=== PATIENT | male | born 1985 | race Caucasian/White ===

== ENCOUNTER 2022-12-17 09:39 | Emergency (ER) | payer BC ==
[2022-12-17 10:06] VITALS: TEMP 98.2
--- NOTE | 2022-12-17 11:33 | ED ---
General Adult HPI - General Chief complaint: Abdominal Pain Stated complaint: ABD PAIN Time Seen by Provider: 12/17/22 11:12 Source: patient, RN notes reviewed Mode of arrival: ambulatory Limitations: no limitations - History of Present Illness Initial comments: 37 year old presents to the emergency department for chief complaint of abdominal pain x3 days. He reports this started in the lower abdomen and is now in his flanks. He states that he's been feeling like he needs to use the bathroom but only having minimal urination. he states that he was taking Azo but is no longer. No history of abdominal surgery. Denies fever, chills. Denies nausea, vomiting. Denies hematuria, dysuria. - Related Data Home Medications Medication Instructions Recorded Confirmed No Known Home Medications 09/02/14 09/02/14 Allergies Allergy/AdvReac Type Severity Reaction Status Date / Time prednisone Allergy Hallucinati Verified 12/17/22 10:06 ons Review of Systems ROS Statement: Those systems with pertinent positive or pertinent negative responses have been documented in the HPI. ROS Other: All systems not noted in ROS Statement are negative. Past Medical History Past Medical History: No Reported History History of Any Multi-Drug Resistant Organisms: None Reported Additional Past Surgical History / Comment(s): finger surgery Past Psychological History: No Psychological Hx Reported Smoking Status: Never smoker Past Alcohol Use History: None Reported Past Drug Use History: None Reported General Exam Limitations: no limitations General appearance: alert, in no apparent distress Head exam: Present: atraumatic, normocephalic, normal inspection Eye exam: Present: normal appearance, PERRL, EOMI. Absent: scleral icterus, conjunctival injection, periorbital swelling ENT exam: Present: normal exam, mucous membranes moist Neck exam: Present: normal inspection. Absent: tenderness, meningismus, lymphadenopathy Respiratory exam: Present: normal lung sounds bilaterally. Absent: respiratory distress, wheezes, rales, rhonchi, stridor Cardiovascular Exam: Present: regular rate, normal rhythm, normal heart sounds. Absent: systolic murmur, diastolic murmur, rubs, gallop, clicks GI/Abdominal exam: Present: soft, tenderness (Suprapubic), normal bowel sounds Extremities exam: Present: normal inspection, full ROM, normal capillary refill. Absent: tenderness, pedal edema, joint swelling, calf tenderness Back exam: Present: normal inspection Neurological exam: Present: alert, oriented X3 Psychiatric exam: Present: normal affect, normal mood Skin exam: Present: warm, dry, intact, normal color. Absent: rash Course Vital Signs 12/17/22 12/17/22 10:04 14:56 Temperature 98.2 F Pulse Rate 85 71 Respiratory 20 16 Rate Blood Pressure 133/82 124/82 O2 Sat by Pulse 99 98 Oximetry Medical Decision Making - Medical Decision Making Was pt. sent in by a medical professional or institution (, PA, CERTIFIED MARINE MECHANIC, urgent c are, hospital, or halfway...) When possible be specific @ -No Did you speak to anyone other than the patient for history (EMS, parent, family, police, friend...)? What history was obtained from this source @ -No Did you review nursing and triage notes (agree or disagree)? Why? @ -I reviewed and agree with nursing and triage notes Were old charts reviewed (outside hosp., previous admission, EMS record, old EKG, old radiological studies, urgent care reports/EKG's, halfway records)? Report findings @ -No old charts were reviewed Differential Diagnosis (chest pain, altered mental status, abdominal pain women, abdominal pain men, vaginal bleeding, weakness, fever, dyspnea, syncope, headache, dizziness, GI bleed, back pain, seizure, CVA, palpatations, mental health, musculoskeletal)? @ -Differential Abdominal Pain Men: Appendicitis, cholecystitis, diverticulosis, ischemic bowel, pancreatitis, hepatitis, UTI, gastroenteritis, AAA, incarcerated hernia, bowel obstruction, constipation, inflammatory bowel, hepatitis, peptic ulcer disease, splenic infarction, perforated viscus, testicular torsion, this is not meant to be an all-inclusive list EKG interpreted by me (3pts min.). @ -None X-rays interpreted by me (1pt min.). @ -None done CT interpreted by me (1pt min.). @ -CT abdomen and pelvis showed soft tissue fullness in the inferior cecum may be due to solid stool material, borderline and mildly enlarged mesenteric adenopathy, moderate hepatic steatosis, small hiatal hernia, mild circ umferential bladder wall thickening U/S interpreted by me (1pt. min.). @ -None done What testing was considered but not performed or refused? (CT, X-rays, U/S, labs)? Why? @ -None What meds were considered but not given or refused? Why? @ -None Did you discuss the management of the patient with other professionals (professionals i.e. DrSisi, PA, CERTIFIED MARINE MECHANIC, lab, RT, psych nurse, social and political studies professor, director public, teacher, chief accounting officer, bookstore manager)? Give summary @ -No Was smoking cessation discussed for >3mins.? @ -No Was critical care preformed (if so, how long)? @ -No Were there social determinants of health that impacted care today? How? (Homelessness, low income, unemployed, alcoholism, drug addiction, transportation, low edu. Level, literacy, decrease access to med. care, fci, rehab)? @ -No Was there de-escalation of care discussed even if they declined (Discuss DNR or withdrawal of care, Hospice)? DNR status @ -No What co-morbidities impacted this encounter? (DM, HTN, Smoking, COPD, CAD, Cancer, CVA, ARF, Chemo, Hep., AIDS, mental health diagnosis, sleep apnea, morbid obesity)? @ -None Was patient admitted / discharged? Hospital course, mention meds given and route, prescriptions, significant lab abnormalities, going to OR and other pertinent info. @ -Discharged. Patient presented to emergency department chief complaint abdominal pain 3 days. CBC, CMP, UA within normal limits. CT abdomen and pelvis was obtained which showed soft tissue fullness in inferior cecum, borderline and mildly enlarged mesenteric adenopathy, moderate hepatic steatosis, small hiatal hernia, mild circumferential bladder wall thickening. Bladder scan was performed which showed 56 post void residual. Discussed findings with patient and his . Advised patient to follow up with primary care and return precautions discussed. Patient discharged in stable condition. Case discussed with my attending, Dr. Bentley Undiagnosed new problem with uncertain prognosis? @ -No Drug Therapy requiring intensive monitoring for toxicity (Heparin, Nitro, Insulin, Cardizem)? @ -No Were any procedures done? @ -No Diagnosis/symptom? @ -abdominal pain Acute, or Chronic, or Acute on Chronic? @ -acute Uncomplicated (without systemic symptoms) or Complicated (systemic symptoms)? @ -uncomplicated Side effects of treatment? @ -No Exacerbation, Progression, or Severe Exacerbation? @ -No Poses a threat to life or bodily function? How? (Chest pain, [place], AL, pneumonia, PE, COPD, DKA, ARF, appy, cholecystitis, CVA, Diverticulitis, Homicidal, Suicidal, threat to staff... and all critical care pts) @ -No - Lab Data Result diagrams: 12/17/22 11:33 12/17/22 11:33 Lab Results 12/17/22 12/17/22 12/17/22 Range/Units 11:33 11:33 11:33 WBC 6.0 (3.8-10.6) k/uL RBC 5.69 (4.30-5.90) m/uL Hgb 16.0 (13.0-17.5) gm/dL Hct 48.1 (39.0-53.0) % MCV 84.5 (80.0-100.0) fL MCH 28.1 (25.0-35.0) pg MCHC 33.3 (31.0-37.0) g/dL RDW 13.4 (11.5-15.5) % Plt Count 273 (150-450) k/uL MPV 7.1 Neutrophils % 71 % Lymphocytes % 19 % Monocytes % 6 % Eosinophils % 1 % Basophils % 0 % Neutrophils # 4.3 (1.3-7.7) k/uL Lymphocytes # 1.2 (1.0-4.8) k/uL Monocytes # 0.4 (0-1.0) k/uL Eosinophils # 0.0 (0-0.7) k/uL Basophils # 0.0 (0-0.2) k/uL Sodium 139 (137-145) mmol/L Potassium 4.3 (3.5-5.1) mmol/L Chloride 105 (98-107) mmol/L Carbon Dioxide 25 (22-30) mmol/L Anion Gap 9 mmol/L BUN 14 (9-20) mg/dL Creatinine 0.86 (0.66-1.25) mg/dL Est GFR (CKD-EPI)AfAm >90 (>60 ml/min/1.73 sqM) Est GFR (CKD-EPI)NonAf >90 (>60 ml/min/1.73 sqM) Glucose 90 (74-99) mg/dL Calcium 9.1 (8.4-10.2) mg/dL Total Bilirubin 0.9 (0.2-1.3) mg/dL AST 40 (17-59) U/L ALT 45 (4-49) U/L Alkaline Phosphatase 83 (38-126) U/L Total Protein 7.8 (6.3-8.2) g/dL Albumin 4.5 (3.5-5.0) g/dL Amylase 44 (30-110) U/L Lipase 49 (23-300) U/L Urine Color Yellow Urine Appearance Clear (Clear) Urine pH 5.0 (5.0-8.0) Ur Specific [place] 1.014 (1.001-1.035) Urine Protein Negative (Negative) Urine Glucose (UA) Negative (Negative) Urine Ketones Negative (Negative) Urine Blood Negative (Negative) Urine Nitrite Negative (Negative) Urine Bilirubin Negative (Negative) Urine Urobilinogen <2.0 (<2.0) mg/dL Ur Leukocyte Esterase Negative (Negative) Disposition Clinical Impression: Abdominal pain Disposition: HOME SELF-CARE Condition: Stable Instructions (If sedation given, give patient instructions): Abdominal Pain (ED) Additional Instructions: Follow-up with your primary care provider this week. Return to the emergency department for new or worsening symptoms. Is patient prescribed a controlled substance at d/c from ED?: No Referrals: Jovan Carpenter MD [REFERRING] - 1-2 days Time of Disposition: 14:40
[2022-12-17 11:48] LABS: Basophils % (A) 0 %; Eosinophils % (A) 1 %; HCT 48.1 % (39.0-53.0); Lymphocytes # (A) 1.2 k/uL (1.0-4.8); Lymphocytes % (A) 19 %; MCH 28.1 pg (25.0-35.0); MCHC 33.3 g/dL (31.0-37.0); MCV 84.5 fL (80.0-100.0); Mean Platelet Volume 7.1; Monocytes # (A) 0.4 k/uL (0-1.0); Monocytes % (A) 6 %; Neutrophils # (A) 4.3 k/uL (1.3-7.7); Neutrophils % (A) 71 %; Platelet Count 273 k/uL (150-450); RBC 5.69 m/uL (4.30-5.90); RDW 13.4 % (11.5-15.5)
[2022-12-17 11:59] LABS: ALT 45 U/L (4-49); African American GFR (CKD) >90 (>60 ml/min/1.73 sqM); Amylase 44 U/L (30-110); Anion Gap 9 mmol/L; Blood Urea Nitrogen 14 mg/dL (9-20); Calcium 9.1 mg/dL (8.4-10.2); Carbon Dioxide 25 mmol/L (22-30); Chloride 105 mmol/L (98-107); Glucose 90 mg/dL (74-99); Lipase 49 U/L (23-300); Non-African American GFR(CKD) >90 (>60 ml/min/1.73 sqM); Sodium 139 mmol/L (137-145); Total Bilirubin 0.9 mg/dL (0.2-1.3)
[2022-12-17 12:00] LABS: Potassium 4.3 mmol/L (3.5-5.1)
[2022-12-17 12:01] LABS: AST 40 U/L (17-59); Albumin 4.5 g/dL (3.5-5.0); Alkaline Phosphatase 83 U/L (38-126); Total Protein 7.8 g/dL (6.3-8.2)
[2022-12-17 12:05] LABS: Appearance,Urine Clear (Clear); Bilirubin,Urine Negative (Negative); Blood,Urine Negative (Negative); Color,Urine Yellow; Glucose,Urine (UA) Negative (Negative); Ketones,Urine Negative (Negative); Leukocyte Esterase,Urine Negative (Negative); Nitrite,Urine Negative (Negative); Protein,Urine Negative (Negative); Specific Gravity,Urine 1.014 (1.001-1.035); Urobilinogen,Urine <2.0 mg/dL (<2.0)
--- NOTE | 2022-12-17 12:50 | CT ---
EXAMINATION TYPE: CT abdomen pelvis wo con DATE OF EXAM: 12/17/2022 COMPARISON: None HISTORY: 37-year-old male Abdominal pain-generalized upper abdomen CT DLP: 1120 mGycm. Automated exposure control for dose reduction was used. TECHNIQUE: Contiguous axial scanning of the abdomen and pelvis without IV contrast. Coronal and sagit fabio reconstructions performed. FINDINGS: LUNG BASES: No significant abnormality is appreciated. LIVER/GB: Mild hepatomegaly at 18.3 cm. Diffuse low-attenuation suggesting fatty infiltration. Gallbl adder is hydropic and 4.5 cm wide. No surrounding inflammation. PANCREAS: No significant abnormality is seen. SPLEEN: No significant abnormality is seen. ADRENALS: No significant abnormality is seen. KIDNEYS: No significant abnormality is seen. BOWEL: Tiny hiatal hernia. No dilated small bowel, free fluid, or free air. Normal appendix. Some sub mucosal fat deposition along the right side of the colon could represent sequela of remote bouts of c olitis or could be idiopathic. There is some fullness noted along the inferior aspect of the cecum, a xial image 148 and coronal image. Mild stool burden. No pericolonic inflammatory change. LYMPH NODES: There is borderline enlarged right lower quadrant mesenteric lymph node measuring 1 cm. Numerous additional scattered right lower quadrant and mid abdominal mesenteric nodes measuring up to 1.1 cm. PELVIS: Mild circumferential bladder wall thickening. Prostate gland measures normal at 3.7 cm wide. No abnormal fluid collection in the pelvis. Scattered nonenlarged external iliac chain nodes measurin g up to 8 mm. No abnormal fluid collections or pelvis. OSSEOUS STRUCTURES: No significant abnormality is seen. OTHER: Small fatty umbilical hernia. IMPRESSION: 1. Soft tissue fullness in the inferior cecum may be due to solid stool material. Correlate with dir ect visualization to exclude a mucosal lesion. 2. Borderline and mildly enlarged mesenteric adenopathy measuring up to 1.1 cm may be reactive/post inflammatory or represent a mesenteric adenitis. 3. At least moderate hepatic steatosis. Correlate with LFTs, lipid profile, and patient risk factors . Mildly hydropic gallbladder likely due to fasting state. 4. Small hiatal hernia. 5. Mild circumferential bladder wall thickening may be chronic for the patient. Correlate to exclude cystitis.
[2022-12-17 15:04] VITALS: BP 124/82; PULSE 71; RESP 16
== END 2022-12-17 15:04 | disposition home or self-care (01) ==
LOC: EC 09:39
DX: K76.0 Fatty (change of) liver, not elsewhere classified (principal); K44.9 Diaphragmatic hernia without obstruction or gangrene; N32.89 Other specified disorders of bladder; Z88.8 Allergy status to other drugs, medicaments and biological substances
CPT/HCPCS: 36415; 51798; 74176; 80053; 81003; 82150; 83690; 85025; 99284